=== PATIENT | male | born 1995 | race African-American/Black ===

== ENCOUNTER 2019-05-05 18:12 | Emergency (ER) | payer MEDICAID ==
[~2019-05-05] VITALS: Ht 188 cm; Wt 109.0 kg
[2019-05-05 18:23] VITALS: BP 140/89
== END 2019-05-06 01:55 | disposition left against medical advice (07) ==
LOC: ER 19:35
DX: Z53.21 Procedure and treatment not carried out due to patient leaving prior to being seen by health care provider (principal)

== ENCOUNTER 2019-12-06 12:29 | Emergency (ER) | payer MEDICAID ==
[~2019-12-06] VITALS: Ht 188 cm; Wt 113.0 kg
[2019-12-06] MEDS ORDERED: KETOROLAC 30MG/ML VIAL IM ONE (15:15)
[2019-12-06 15:57] VITALS: BP 138/83
== END 2019-12-06 16:00 | disposition home or self-care (01) ==
LOC: ER 12:29
DX: M54.41 Lumbago with sciatica, right side (principal); Y04.0XXA Assault by unarmed brawl or fight, initial encounter; Y93.89 Activity, other specified; Y92.89 Other specified places as the place of occurrence of the external cause
CPT/HCPCS: 96372; 99283; J1885

== ENCOUNTER 2020-05-29 01:42 | Emergency (ER) | payer MEDICAID ==
[~2020-05-29] VITALS: Ht 188 cm; Wt 109.0 kg
[2020-05-29 01:51] VITALS: BP 154/98
== END 2020-05-29 03:41 | disposition home or self-care (01) ==
LOC: ER 01:42
DX: S39.011A Strain of muscle, fascia and tendon of abdomen, initial encounter (principal); X58.XXXA Exposure to other specified factors, initial encounter; Y93.89 Activity, other specified; Y92.89 Other specified places as the place of occurrence of the external cause; Y99.8 Other external cause status
CPT/HCPCS: 99283; Z7610; 99281